=== PATIENT | female | born 1960 | race Caucasian/White ===

== ENCOUNTER 2018-04-24 06:32 | Day surgery (SDC) | payer OTHER ==
[2018-04-24] MEDS ORDERED: LIDOCAINE 2% (SDV) 5 ML INJ (07:00)
[2018-04-24] MEDS ORDERED: SOD CHLORIDE 0.9% 1,000 ML IV (07:00)
[2018-04-24] MEDS ORDERED: CEFAZOLIN 1 GM INJ (07:18)
[2018-04-24] MEDS ORDERED: DEXAMETHASONE 4 MG/ML 1 ML INJ (07:18)
[2018-04-24] MEDS: DICLOFENAC 0.1% 2.5 ML OPH OPER (07:19)
[2018-04-24] MEDS: MOXIFLOXACIN 0.5% 3 ML OPH OPER (07:19)
[2018-04-24] MEDS: TROPICAMIDE 1% 3 ML OPH OPER (07:19)
[2018-04-24] MEDS: CYCLOPENTOLATE/PHENYLEPH 2 ML OPH OPER (07:20)
[2018-04-24] MEDS ORDERED: MIDAZOLAM 1 MG/ML 2 ML INJ (07:51)
[2018-04-24] MEDS: CARBACHOL 0.01% 1.5 ML OPH INJ (08:11)
[2018-04-24] MEDS: EPINEPHrine 1 MG INJ (08:11)
[2018-04-24] MEDS: GENTAMICIN 80 MG INJ (08:12)
[2018-04-24] MEDS: LIDOCAINE 4% (MPF) 5 ML INJ (08:12)
[2018-04-24] MEDS ORDERED: PROPOFOL 20 ML (08:57)
[2018-04-24] MEDS ORDERED: OXYCODONE/ACETAMINOPHEN (5/325) TAB PO (09:00)
[2018-04-24] MEDS ORDERED: LABETALOL HCL 20MG INJ IV (09:00)
[2018-04-24] MEDS ORDERED: DIPHENHYDRAMINE 50 MG INJ IV (09:00)
[2018-04-24] MEDS ORDERED: ALBUTEROL 0.083% (NEB) 2.5 MG/3 ML AMP HHN (09:00)
[2018-04-24] MEDS ORDERED: ACETAMINOPHEN 1000MG/100ML IV 100 ML IVPB (09:00)
[2018-04-24] MEDS ORDERED: hydrALAzine 20 MG INJ IV (09:00)
[2018-04-24] MEDS ORDERED: ONDANSETRON 4 MG INJ IV (09:00)
[2018-04-24] MEDS ORDERED: LABETALOL HCL 20MG INJ (09:20)
== END 2018-04-24 11:12 | disposition home or self-care (01) ==
LOC: SDS 06:32
DX: H25.11 Age-related nuclear cataract, right eye (principal); E11.319 Type 2 diabetes mellitus with unspecified diabetic retinopathy without macular edema; E78.5 Hyperlipidemia, unspecified
CPT/HCPCS: 66984; 82962

== ENCOUNTER 2019-02-27 05:54 | Day surgery (SDC) | payer OTHER ==
[2019-02-27] MEDS ORDERED: BALANCED SALT SOLN OPH IRRIG 500 ML, EPINEPHrine 0.1 MG, GENTAMICIN 4 MG, VANCOMYCIN 10 MG IRR (06:00)
[2019-02-27] MEDS ORDERED: APRACLONIDINE 1% 0.1 ML OPH OPER (06:00)
[2019-02-27] MEDS ORDERED: ACETAZOLAMIDE 250 MG TAB PO (06:00)
[2019-02-27] MEDS ORDERED: LIDOCAINE 4% (MPF) 5 ML INJ (06:50)
[2019-02-27] MEDS ORDERED: TOBRAMYCIN/DEXAMETH 3.5 GM OPH OINT (06:51)
[2019-02-27] MEDS: TROPICAMIDE 1% 15 ML OPH OPER (06:52)
[2019-02-27] MEDS: ACETAMINOPHEN 500 MG TAB PO (06:52)
[2019-02-27] MEDS: TETRACAINE 0.5% 4 ML OPH OPER (06:55)
[2019-02-27] MEDS: PHENYLephrine 2.5% 15 ML OPH OPER (06:57)
[2019-02-27] MEDS ORDERED: ALBUTEROL 0.083% (NEB) 2.5 MG/3 ML AMP HHN (07:30)
[2019-02-27] MEDS ORDERED: LABETALOL HCL 20MG INJ IV (07:30)
[2019-02-27] MEDS ORDERED: FENTAnyl 50 MCG/ML VIAL IV (07:30)
[2019-02-27] MEDS ORDERED: SOD CHLORIDE 0.9% 1,000 ML IV (07:30)
[2019-02-27] MEDS ORDERED: OXYCODONE/ACETAMINOPHEN (5/325) TAB PO (07:30)
[2019-02-27] MEDS ORDERED: hydrALAzine 20 MG INJ IV (07:30)
[2019-02-27] MEDS ORDERED: ONDANSETRON 4 MG INJ IV (07:30)
[2019-02-27] MEDS ORDERED: ACETAMINOPHEN 325 MG TAB PO (07:30)
[2019-02-27] MEDS ORDERED: DIPHENHYDRAMINE 50 MG INJ IV (07:30)
[2019-02-27] MEDS ORDERED: CARBACHOL 0.01% 1.5 ML OPH INJ (07:34)
[2019-02-27] MEDS ORDERED: MIDAZOLAM 1 MG/ML 2 ML INJ ×2 (07:38→08:49)
[2019-02-27] MEDS ORDERED: FENTAnyl 50 MCG/ML VIAL ×2 (08:06→08:49)
[2019-02-27] MEDS ORDERED: LABETALOL HCL 20MG INJ (08:24)
[2019-02-27] MEDS: EPINEPHrine 1 MG INJ (08:32)
[2019-02-27] MEDS: TETRACAINE 0.5% 4 ML OPH (08:32)
[2019-02-27] MEDS: LIDOCAINE 4% (MPF) 5 ML INJ INJ (08:32)
[2019-02-27] MEDS: TRYPAN BLUE 0.5 ML SYG IO (08:33)
[2019-02-27] MEDS: NEOMYC/POLYMYX/DEXAM 3.5GM OPH OINT OPER (08:34)
== END 2019-02-27 10:47 | disposition home or self-care (01) ==
LOC: SDS 05:54
DX: H25.12 Age-related nuclear cataract, left eye (principal); E78.5 Hyperlipidemia, unspecified; E11.9 Type 2 diabetes mellitus without complications
CPT/HCPCS: 66984; 82962